=== PATIENT | female | born 1970 | race Caucasian/White ===

== ENCOUNTER 2024-02-02 05:10 | Observation (INO) ==
[2024-02-02] MEDS: Dexamethasone IV 4 MG/ML VIAL 1 ml VIAL IV SLOW PU ONE (05:53)
[2024-02-02] MEDS: Lidocaine 1% MPF 5 ML VIAL INJ ONE (05:54)
[2024-02-02] MEDS: Orphenadrine Citrate INJ 30 mg/ml 2 ml VIAL (60 mg) IV ONE (05:54)
[2024-02-02] MEDS: fentaNYL 100 mcg/2 ml 50 MCG/ML VIAL IV SLOW PU ONE (06:46)
[2024-02-02] MEDS: Acetaminophen IV 1 GM/100ML 1,000 MG/100 ML BAG IV ONE (07:53)
[2024-02-02 07:56] LABS: ABS Basophils 0.1 10^3/uL (0.0-0.1); ABS Eosinophils 0.1 10^3/uL (0.0-0.5); ABS Lymphocytes 1.3 10^3/uL (1.0-4.8); ABS Monocytes 0.3 10^3/uL (0.0-0.9); ABS Neutrophils 6.7 10^3/uL (1.5-7.6); ABS Nucleated RBC 0.01 10^3/ul; Hematocrit 37.1 % (35-45); Hemoglobin 12.4 g/dL (11.5-14.3); Lymphocyte % 14.8 %; Mean Corpuscular Hemoglobin 28.6 pg (27-33); Mean Corpuscular Hgb Conc 33.5 g/dL (31-36); Mean Corpuscular Volume 85.4 fL (80-97); Mean Platelet Volume 9.8 fL (7.5-11.2); Nucleated Red Blood Cells % 0.1 %/100WBC (0.0-0.8); Platelet Count 198 10^3/uL (150-450); Red Blood Count 4.34 10^6/uL (3.63-4.92); Red Cell Distribution Width 14.9 % (12-17); White Blood Count 8.5 10^3/uL (3.8-11.8)
[2024-02-02 08:34] LABS: Albumin 4.2 g/dL (3.2-5.2); CRP High Sensitivity 13.16 mg/L (<2.00); Calcium 9.1 mg/dL (8.6-10.3); Creatinine, Serum 1.24 mg/dL (0.51-0.95); Globulin 2.1 g/dL (2-4); Potassium 4.4 mmol/L (3.5-5.0); Total Bilirubin 0.4 mg/dL (0.2-1.0); Total Protein 6.3 g/dL (6.4-8.9); eGFR CKD-EPI 51.4 (>60)
[2024-02-02 09:17] LABS: High Sensitivity Troponin 1 Hr 7 pg/mL (<15)
[2024-02-02 09:27] LABS: Erythrocyte Sed Rate 24 mm/Hr (0-29)
[2024-02-02] MEDS: Iodixanol (CONTRAST) 320 MG/ML 100 ML SDV IV ONE (10:30)
[2024-02-02] MEDS: Iodixanol 320 (CONTRAST) 100 ML SDV IV ONE (10:30)
[2024-02-02] MEDS: Morphine 4 MG/ML VIAL (1 ml) IV ONE (11:40)
[2024-02-02] MEDS: Droperidol 5 MG/2 ML 2 ML VIAL IV ONE (13:53)
[2024-02-02] MEDS ORDERED: Senna TAB 8.6 mg TAB PO PRN (14:47)
[2024-02-02] MEDS: Enoxaparin 40 MG/0.4 ML SYR SUBCUT SCH (14:59)
[2024-02-02] MEDS ORDERED: Naloxone Nasal Spray 4 MG/0.1 ML NASAL.SPR INTRANASAL PRN (15:09)
[2024-02-02] MEDS: DULoxetine DR 30 mg CAP PO SCH (15:51)
[2024-02-02] MEDS ORDERED: Lidocaine PATCH 4% TOPICAL PRN (16:16)
[2024-02-03 05:35] LABS: Calcium 9.1 mg/dL (8.6-10.3); Creatinine, Serum 0.89 mg/dL (0.51-0.95); Potassium 4.3 mmol/L (3.5-5.0); eGFR CKD-EPI 76.5 (>60)
[2024-02-03] MEDS: Cholecalciferol (VIT D3) 400 units TAB PO SCH (07:41)
[2024-02-04 05:54] LABS: Hematocrit 39.2 % (35-45); Hemoglobin 13.1 g/dL (11.5-14.3); Mean Corpuscular Hemoglobin 28.8 pg (27-33); Mean Corpuscular Hgb Conc 33.5 g/dL (31-36); Mean Corpuscular Volume 86.1 fL (80-97); Mean Platelet Volume 9.7 fL (7.5-11.2); Platelet Count 227 10^3/uL (150-450); Red Blood Count 4.56 10^6/uL (3.63-4.92); Red Cell Distribution Width 15.2 % (12-17); White Blood Count 8.5 10^3/uL (3.8-11.8)
[2024-02-04 06:27] LABS: Calcium 9.2 mg/dL (8.6-10.3); Creatinine, Serum 1.02 mg/dL (0.51-0.95); Potassium 4.5 mmol/L (3.5-5.0)
[2024-02-04 14:11] VITALS: BP 117/77
== END 2024-02-04 15:49 | disposition home or self-care (01) ==
LOC: EDHOLD 05:10 → ED 05:10 → SUATTDRO 14:47 → MED 20:19 → MEDTELE 02-03 20:14
PROVIDERS: ADMIT Internal Medicine; ATTEND Student in an Organized Health Care Education/Training Program